=== PATIENT | female | born 1955 | race Caucasian/White ===

== ENCOUNTER → 2017-02-02 | Outpatient (CLI) | payer BC ==
[~2017-02-02] MED LIST: ADVIL PM 38 MG-1 TAB PO; AMOXICILLIN 8751 TAB PO; NORCO 325 MG-51 TAB; NORCO 325 MG-51 TAB PO; PROMETHAZINE V473 M2 PO
== END ==
LOC: MC.RAD 15:20
DX: Z12.31 Encounter for screening mammogram for malignant neoplasm of breast (principal); Z85.3 Personal history of malignant neoplasm of breast

== ENCOUNTER → 2018-02-03 | Outpatient (CLI) | payer BC | LOC: MC.RAD 07:20 | DX: Z12.31 Encounter for screening mammogram for malignant neoplasm of breast (principal); Z85.3 Personal history of malignant neoplasm of breast ==

== ENCOUNTER → 2020-07-16 | Outpatient (CLI) | payer BC | LOC: ZCOL.LAB 16:25 | DX: Z20.828 Contact with and (suspected) exposure to other viral communicable diseases (principal) ==